=== PATIENT | female | born 1990 | race Caucasian/White ===

== ENCOUNTER 2023-06-05 15:38 | Emergency (ER) | payer MEDICAID ==
[~2023-06-05] VITALS: Ht 162.6 cm; Wt 68.3 kg
[2023-06-05] MEDS ORDERED: ipratropium/albuterol 3ml nebule NEB PRN ×2 (16:55→17:10)
[2023-06-05] MEDS: dexamethasone sod phosphate 10mg/ml inj PO STA (17:03)
[2023-06-05] MEDS: ipratropium/albuterol 3ml nebule NEB STA (17:09)
[2023-06-05 17:10] VITALS: PULSE 90; RESP 17; O2SAT 95
[2023-06-05 17:15] VITALS: PULSE 98; O2SAT 100
[2023-06-05] MEDS ORDERED: ALBU8HFA INH (17:40)
[2023-06-05] MEDS ORDERED: PRED20TA PO (17:40)
[2023-06-05 17:57] VITALS: BP 120/86; PULSE 98; RESP 16; TEMP 98; O2SAT 99
== END 2023-06-05 17:59 | disposition home or self-care (01) ==
LOC: ER 15:39
DX: J45.909 Unspecified asthma, uncomplicated (principal); Z79.899 Other long term (current) drug therapy
CPT/HCPCS: 71046; 94640; 99283; J1100; 94760; 99282; 99285